=== PATIENT | female | born 1980 | race Caucasian/White ===

== ENCOUNTER 2022-01-19 01:02 | Emergency (ER) | payer OTHER ==
[2022-01-19] MEDS ORDERED: CIPROFLOXACIN 500 MG (CIPRO) TABLET PO STA (01:15)
[2022-01-19] MEDS ORDERED: CIPR500T5 PO (01:15)
[2022-01-19] MEDS ORDERED: IBUPROFEN 600 MG (MOTRIN) TAB PO ONE (01:15)
[2022-01-19] MEDS ORDERED: TETANUS,DIPTH,PERTUSS P/F (BOOSTRIX) 0.5 ML VIAL IM ONE (01:15)
--- NOTE | 2022-01-19 01:15 | ED Lower Extremity ---
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 Having constant moderate throbbing pain in bilateral feet which is worse with walking and better with rest. Last tetanus shot she believes was roughly 6 years ago. She is otherwise denying any other acute complaints. Allergies and Home Medications Allergies Coded Allergies: Clindamycin (Verified Allergy, Unknown, 01/19/22) Patient Home Medication List Home Medication List Reviewed: Yes Review of Systems Constitutional: no symptoms reported EENTM: no symptoms reported Respiratory: no symptoms reported Cardiovascular: no symptoms reported Gastrointestinal: no symptoms reported Genitourinary: no symptoms reported Musculoskeletal: see HPI Skin: see HPI Psychiatric/Neurological: No Symptoms Reported All Other Systems Reviewed Negative Unless Noted: Yes Past Xnmopmy-Qhmkre-Fgcfys Hx Patient Social History Tobacco Use?: No Past Medical History Surgeries: No Physical Exam Vital Signs Capillary Refill : Height, Weight, BMI Height: '" Weight: lbs. oz. kg; BMI Method: General Appearance: WD/WN, no apparent distress HEENT: PERRL/EOMI, normal ENT inspection, pharynx normal Neck: non-tender, full range of motion, supple, normal inspection Cardiovascular: regular rate, rhythm, no edema, no murmur Respiratory: chest non-tender, lungs clear, normal breath sounds, no respiratory distress, no accessory muscle use Gastrointestinal: normal bowel sounds, non tender, soft; No distended, No guarding, No rebound Back: normal inspection Feet: right foot other (Small puncture wounds to the bilateral feet that are very superficial and bleeding is controlled, not amenable to any type of suturing) Neurologic/Tendon: normal sensation, normal motor functions, normal tendon functions Neurologic/Psychiatric: no motor/sensory deficits, alert, normal mood/affect Skin: normal color, warm/dry Lymphatic: no adenopathy Progress/Results/Core Measures Progress Progress Note : Progress Note Came in because she stepped on some nails through her shoes. We will start her on antibiotics and update tetanus today. I believe she is stable for discharge with outpatient follow-up. She was sent home with strict return precautions Departure Impression Primary Impression: Puncture wound Disposition: HOME, SELF-CARE Condition: Stable Departure-Patient Inst. Decision time for Depature: 01:20 Referrals: NO,LOCAL PHYSICIAN (PCP) Primary Care Physician Patient Instructions: Wound Care ED Add. Discharge Instructions: You will be on antibiotics for the next week. If you have any redness spreading up your foot, pus coming out of the wound, or any fevers we want you to be seen by Dr. Take ibuprofen as needed for pain. Scripts Ciprofloxacin HCl (Ciprofloxacin HCl) 500 Mg Tablet 500 MG PO BID for 7 Days, #14 TAB Prov: SE WAGNER MD 01/19/22 Work/School Note: Work Release Form Date Seen in the Emergency Department: Jan 19, 2022 Return to Work: Jan 20, 2022 Restrictions: No Restrictions SE WAGNER MD Jan 19, 2022 01:15
[2022-01-19 01:24] VITALS: BP 164/134
== END 2022-01-19 01:25 | disposition home or self-care (01) ==
LOC: ER FS 01:08
DX: S91.331A Puncture wound without foreign body, right foot, initial encounter (principal); S91.332A Puncture wound without foreign body, left foot, initial encounter; Z28.310 Unvaccinated for COVID-19; W45.0XXA Nail entering through skin, initial encounter; Y92.61 Building [any] under construction as the place of occurrence of the external cause
CPT/HCPCS: 90715; 99284

== ENCOUNTER 2022-06-07 06:17 | Emergency (ER) | payer OTHER ==
[~2022-06-07 06:17] MED LIST: CIPR500T5 PO
--- NOTE | 2022-06-07 06:53 | ED General ---
General Chief Complaint: General Problems/Pain Stated Complaint: HIGH BLOOD PRESSURE History of Present Illness Date Seen by Provider: Jun 07, 2022 Time Seen by Provider: 06:33 Initial Comments 42-year-old female is here with c/o headache and elevated BP after taking Nyquil/ Dayquil every 3 hours instead of every 8 hours as directed on the box. Pt has been having symptoms of cough, cold, sore throat for the past 3 or 4 days. Denies diarrhea, abdominal pain, nausea, vomiting, chest pain. Allergies and Home Medications Allergies Coded Allergies: clindamycin (Verified Allergy, Unknown, 01/19/22) Patient Home Medication List Home Medication List Reviewed: Yes Ciprofloxacin HCl (Ciprofloxacin HCl) 500 Mg Tablet, 500 MG PO BID Prescribed by: SE WAGNER on 01/19/22 0115 Review of Systems Review of Systems Constitutional: no symptoms reported EENTM: no symptoms reported Respiratory: no symptoms reported Cardiovascular: no symptoms reported Gastrointestinal: no symptoms reported Genitourinary: no symptoms reported Musculoskeletal: no symptoms reported Skin: no symptoms reported Psychiatric/Neurological: No Symptoms Reported Hematologic/Lymphatic: No Symptoms Reported Immunological/Allergic: no symptoms reported Past Nwabrdq-Nyzuyi-Igouvd Hx Past Medical History Surgeries: No Physical Exam Vital Signs Vital Signs - First Documented 06/07/22 06:18 Temp 37.2 Pulse 107 Resp 20 B/P (MAP) 169/103 (125) Pulse Ox 99 O2 Delivery Room Air Capillary Refill : Height, Weight, BMI Height: '" Weight: lbs. oz. 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 as 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 Skin: Normal Color Progress/Results/Core Measures Suspected Sepsis SIRS Temperature: Pulse: Respiratory Rate: Blood Pressure / Mean: Results/Orders Lab Results Laboratory Tests Test 06/07/22 06:54 Range/Units My Orders Orders - DENIZ BARRETT MD Covid 19 Inhouse Test (06/07/22 06:53) Influenza A And B By Pcr (06/07/22 06:53) Ed Iv/Invasive Line Start (06/07/22 06:54) Ns Iv 1000 Ml (Sodium Chloride 0.9%) (06/07/22 07:00) Ketorolac Injection (Toradol Injection) (06/07/22 07:00) Ekg Tracing (06/07/22 06:55) Medications Given in ED Current Medications Medications Dose Ordered Sig/Karen Route Start Time Stop Time Status Last Admin Dose Admin Ketorolac Tromethamine 15 mg ONCE ONCE IVP 06/07/22 07:00 06/07/22 07:01 DC 06/07/22 06:58 15 MG Vital Signs/I&O 06/07/22 06:18 Temp 37.2 Pulse 107 Resp 20 B/P (MAP) 169/103 (125) Pulse Ox 99 O2 Delivery Room Air Capillary Refill : Progress Note : Progress Note 1. COVID POSITIVE: - COVID test positive - Rapid flu negative -Quarantine measures advised -Adequate hydration advised -Follow-up with PCP within the next 7 days -Return to ER if symptoms are worsening 2. MEDICATION OVERUSE: - Tachycardia and elevated BP and Headaache likely due to taking too much Nyquil and Dayquil -Advised proper instructions on how to take DayQuil and NyQuil - NS IVF bolus STAT in ER - Toradol 15mg iv STAT Departure Impression Primary Impression: SARS-CoV-2 positive Additional Impression: Medication overuse headache Disposition: HOME, SELF-CARE Condition: Stable Departure-Patient Inst. Referrals: NO,LOCAL PHYSICIAN (PCP) Primary Care Physician Patient Instructions: COVID-19 (DC), COVID-19 ED, Prone Position Add. Discharge Instructions: -Quarantine measures advised -Adequate hydration advised -Follow-up with PCP within the next 7 days -Return to ER if symptoms are worsening -Advised proper instructions on how to take DayQuil and NyQuil All discharge instructions reviewed with patient and/or family. Voiced understanding. DENIZ BARRETT MD Jun 07, 2022 06:53
[2022-06-07] MEDS ORDERED: KETOROLAC 15 MG/ML VIAL IVP ONE (07:00)
[2022-06-07] MEDS ORDERED: NS IV 1000 ML 1,000 ML IV SCH (07:00)
[2022-06-07 07:51] VITALS: BP 126/93
== END 2022-06-07 07:53 | disposition home or self-care (01) ==
LOC: EDUNIT# 06:17 → ER FS 06:19
DX: U07.1 COVID-19 (principal); R51.9 Headache, unspecified; T50.995A Adverse effect of other drugs, medicaments and biological substances, initial encounter; Z28.310 Unvaccinated for COVID-19
CPT/HCPCS: 87636; 93005